=== PATIENT | female | born 1945 | race Caucasian/White ===

== ENCOUNTER → 2017-03-20 | Outpatient (REF) | payer MEDICARE, BC ==
[~2017-03-20] MED LIST: ASPI1TAB PO; ATEN25TA PO; OMEP20CA3 PO; magnesium OR; vitamin D OR
[2017-03-20 14:28] LABS: CONTROL LINE HPYORI INT CTR LINE PRESENT
== END ==
LOC: M LAB REF 13:21
PROVIDERS: ATTEND Nurse Practitioner Family
DX: F45.8 Other somatoform disorders (principal); K21.9 Gastro-esophageal reflux disease without esophagitis

== ENCOUNTER 2018-09-03 12:29 | Day surgery (SDC) | payer MEDICARE, BC ==
[~2018-09-03] VITALS: Ht 152.4 cm; Wt 66.7 kg
[~2018-09-03 12:29] MED LIST changes: +METO1TAB32 PO; +RANI1TAB6 PO; +VITA2000 PO
[2018-09-03] MEDS ORDERED: PROPOFOL 200 MG/20 ML VIAL As Ordered ONE (14:00)
[2018-09-03] MEDS ORDERED: LIDOCAINE 2% INJ 100 MG/5 ML SDV (FOR ANES.) As Ordered ONE (14:01)
[2018-09-03] MEDS ORDERED: fentaNYL 100 MCG/2 ML INJECTION (J3010) As Ordered ONE (15:47)
--- NOTE | 2018-09-03 16:02 | ROOR ---
Patient Name: Viky Epstein Procedure Date: 09/03/2018 3:46 PM Date of : 1945 Age: 73 Room: [facility] Gender: Female Note Status: Finalized Procedure: Upper GI endoscopy Indications: Abnormal cine-esophagram (cervical web), Globus sensation Providers: Reji PALMER MD Referring MD: LOTTIE RUIZ JR, MD Requesting Provider: Medicines: Monitored Anesthesia Care Complications: No immediate complications. Procedure: Pre-Anesthesia Assessment: - The heart rate, respiratory rate, oxygen saturations, blood pressure, adequacy of pulmonary ventilation, and response to care were monitored throughout the procedure. The Endoscope was introduced through the mouth, and advanced to the second part of duodenum. The upper GI endoscopy was accomplished without difficulty. The patient tolerated the procedure well. Findings: The examined esophagus was normal. No endoscopic abnormality was evident in the esophagus to explain the patient's complaint of dysphagia. It was decided, however, to proceed with dilation of the entire esophagus. The scope was withdrawn. Dilation was performed with a Dominguez dilator with no resistance at 54 Fr. A medium-sized hiatal hernia was present. Mild inflammation was found in the gastric antrum. Biopsies were taken with a cold forceps for histology. The exam was otherwise without abnormality. Impression: - Normal esophagus. - No endoscopic esophageal abnormality to explain patient's dysphagia. Esophagus dilated with 54 F dominguez dilator. - Medium sized hiatal hernia. - Mild gastritis. Biopsied. - The examination was otherwise normal. Recommendation: - Observe patient's clinical course. - Continue present medications. - Telephone endoscopist for pathology results in 2 weeks. Reji Palmer MD Reji PALMER MD 09/03/2018 4:02:31 PM This report has been signed electronically. Number of Addenda: 0 Note Initiated On: 09/03/2018 3:46 PM Estimated Blood Loss: Estimated blood loss: none.
[2018-09-03 16:25] VITALS: BP 140/63
== END 2018-09-03 16:31 | disposition home or self-care (01) ==
LOC: M OPP 12:29
PROVIDERS: ATTEND Internal Medicine Gastroenterology
DX: R93.3 Abnormal findings on diagnostic imaging of other parts of digestive tract (principal); R13.10 Dysphagia, unspecified; K44.9 Diaphragmatic hernia without obstruction or gangrene; K29.70 Gastritis, unspecified, without bleeding; F45.9 Somatoform disorder, unspecified; I49.9 Cardiac arrhythmia, unspecified; Z79.82 Long term (current) use of aspirin; Z79.899 Other long term (current) drug therapy
CPT/HCPCS: 43239; 43450; 88305; J3010

== ENCOUNTER → 2020-05-25 | Outpatient (REF) | payer MEDICARE, BC ==
[~2020-05-25] MED LIST changes: -ASPI1TAB PO; +ASPI81TA26 PO; +OMEP1CAP73 PO; -OMEP20CA3 PO; +RANI-397 PO; -RANI1TAB6 PO
== END ==
LOC: M LAB REF 16:12
PROVIDERS: ATTEND Nurse Practitioner Adult Health
DX: N39.0 Urinary tract infection, site not specified (principal)

== ENCOUNTER → 2021-01-19 | Outpatient (CLI) | payer MEDICARE, BC ==
--- NOTE | 2021-01-19 09:37 | DEXAMM ---
INDICATION: M81.0 AGE RELATED OSTEOPOROSIS. COMPARISON: 09/15/2015, 11/12/2013. TECHNIQUE: Bone density was measured using dual-energy x-ray absorptiometry (DEXA). FINDINGS: AP SPINE L1-L4 BMD 1.218 g/cm2 Young Adult T-Score 0.2 Age Matched Z-Score 2.0. LT FEMUR, TOTAL BMD 0.832 g/cm2 Young Adult T-Score -1.4 Age Matched Z-Score 0.5. LT NECK BMD 0.790 g/cm2 Young Adult T-Score -1.8 Age Matched Z-Score 0.2. RT FEMUR, TOTAL BMD 0.827 g/cm2 Young Adult T-Score -1.4 Age Matched Z-Score 0.4. RT NECK BMD 0.774 g/cm2 Young Adult T-Score -1.9 Age Matched Z-Score 0.1. IMPRESSION: There is normal bone density of the spine. There is low bone density of the left hip. There is low bone density of the right hip. The density of the spine has increased 1.8% since the initial exam on 11/12/2013. The density of the spine increased 12.3% since most recent exam on 09/15/2015. The density of the left hip has decreased 20.5% since initial exam on 11/13/2003. The density of the left hip has decreased 7.3% since most recent exam on 09/15/2015. The density of the right hip has decreased 17.7% since the initial exam on 11/13/2003. The density of the right hip has decreased 5.1% since the most recent exam on 09/15/2015. FOLLOW-UP: Recommendation for the next bone density exam: 2 years. <Electronically signed by Liang Ghosh > 01/19/21 0933
== END ==
LOC: M WHC 08:04
PROVIDERS: ATTEND Internal Medicine
DX: M81.0 Age-related osteoporosis without current pathological fracture (principal); M85.851 Other specified disorders of bone density and structure, right thigh; M85.852 Other specified disorders of bone density and structure, left thigh

== ENCOUNTER → 2022-04-03 | Outpatient (CLI) | payer MEDICARE, BC ==
[2022-04-03 16:32] LABS: BASO # 0.1 10^3/uL (0.0-0.2); BASO % 0.6 % (0.0-1.0); EOS # 0.1 10^3/uL (0.0-0.5); EOS % 1.4 % (0.0-3.0); HEMATOCRIT 42.5 % (36.0-47.0); HEMOGLOBIN 13.7 g/dl (12.0-15.5); LYMPH # 1.9 10^3/uL (1.5-5.0); LYMPH % 18.5 % (24.0-44.0); MEAN CORPUSCULAR HEMOGLOBIN 30.9 pg (27.0-33.0); MEAN CORPUSCULAR HGB CONC 32.2 g/dl (32.0-36.5); MEAN CORPUSCULAR VOLUME 95.9 fl (80.0-96.0); MONO # 0.9 10^3/uL (0.0-0.8); MONO % 8.3 % (2.0-8.0); NEUTROPHILS # 7.4 10^3/uL (1.5-8.5); NEUTROPHILS % 70.9 % (36.0-66.0); PLATELET COUNT, AUTOMATED 231 10^3/uL (150-450); RED BLOOD COUNT 4.43 10^6/uL (4.00-5.40); WHITE BLOOD COUNT 10.4 10^3/uL (4.0-10.0)
[2022-04-03 17:04] LABS: ALBUMIN 3.6 GM/DL (3.2-5.2); ALT/SGPT 23 U/L (12-78); BILIRUBIN,TOTAL 0.8 MG/DL (0.2-1.0); BLOOD UREA NITROGEN 18 MG/DL (7-18); CALCIUM LEVEL 9.2 MG/DL (8.8-10.2); CARBON DIOXIDE LEVEL 27 MEQ/L (21-32); CHLORIDE LEVEL 107 MEQ/L (98-107); CREATININE FOR GFR 0.95 MG/DL (0.55-1.30); GLOMERULAR FILTRATION RATE > 60.0 (>39); GLUCOSE, FASTING 99 MG/DL (70-100); POTASSIUM SERUM 4.2 MEQ/L (3.5-5.1); SODIUM LEVEL 141 MEQ/L (136-145); TOTAL PROTEIN 6.7 GM/DL (6.4-8.2)
== END ==
LOC: M WUC 13:33
PROVIDERS: ATTEND Physician Assistant
DX: R10.30 Lower abdominal pain, unspecified (principal); R19.7 Diarrhea, unspecified

== ENCOUNTER 2022-05-14 17:38 | Emergency (ER) | payer MEDICARE, BC ==
[~2022-05-14] VITALS: Ht 162.6 cm; Wt 59.3 kg
[2022-05-14 18:32] LABS: BASO # 0.1 10^3/uL (0.0-0.2); BASO % 0.8 % (0.0-1.0); EOS # 0.1 10^3/uL (0.0-0.5); EOS % 1.3 % (0.0-3.0); HEMATOCRIT 43.3 % (36.0-47.0); HEMOGLOBIN 14.4 g/dl (12.0-15.5); LYMPH # 2.8 10^3/uL (1.5-5.0); LYMPH % 30.6 % (24.0-44.0); MEAN CORPUSCULAR HEMOGLOBIN 30.7 pg (27.0-33.0); MEAN CORPUSCULAR HGB CONC 33.3 g/dl (32.0-36.5); MEAN CORPUSCULAR VOLUME 92.3 fl (80.0-96.0); MONO # 0.9 10^3/uL (0.0-0.8); MONO % 9.8 % (2.0-8.0); NEUTROPHILS # 5.2 10^3/uL (1.5-8.5); NEUTROPHILS % 57.3 % (36.0-66.0); PLATELET COUNT, AUTOMATED 240 10^3/uL (150-450); RED BLOOD COUNT 4.69 10^6/uL (4.00-5.40); WHITE BLOOD COUNT 9.1 10^3/uL (4.0-10.0)
[2022-05-14 19:01] LABS: ALBUMIN 3.6 GM/DL (3.2-5.2); ALT/SGPT 18 U/L (12-78); BILIRUBIN,DIRECT 0.2 MG/DL (0.0-0.2); BILIRUBIN,TOTAL 0.8 MG/DL (0.2-1.0); BLOOD UREA NITROGEN 12 MG/DL (7-18); CALCIUM LEVEL 9.3 MG/DL (8.8-10.2); CARBON DIOXIDE LEVEL 26 MEQ/L (21-32); CHLORIDE LEVEL 107 MEQ/L (98-107); CREATININE FOR GFR 0.82 MG/DL (0.55-1.30); GLOMERULAR FILTRATION RATE > 60.0 (>39); GLUCOSE, FASTING 100 MG/DL (70-100); LIPASE 67 U/L (73-393); POTASSIUM SERUM 4.7 MEQ/L (3.5-5.1); SODIUM LEVEL 138 MEQ/L (136-145); TOTAL PROTEIN 7.1 GM/DL (6.4-8.2)
[2022-05-14] MEDS ORDERED: ISOVUE-370 76% 100ML VIAL As Ordered ONE (21:48)
[2022-05-14] MEDS ORDERED: NS 1,000 ML IV ONE (21:50)
[2022-05-14] MEDS ORDERED: DICYCLOMINE 10 MG CAP PO ONE (21:50)
[2022-05-14 23:01] VITALS: BP 132/83
[2022-05-14] MEDS ORDERED: metroNIDAZOLE (FLAGYL) 500MG TABLET PO ONE (23:05)
[2022-05-14] MEDS ORDERED: CIPROFLOXACIN 500MG TABLET PO ONE (23:05)
[2022-05-14] MEDS ORDERED: traMADol 50 MG TAB PO ONE (23:05)
[2022-05-14] MEDS ORDERED: METR-265 PO (23:09)
[2022-05-14] MEDS ORDERED: TRAM50TA2 PO (23:09)
[2022-05-14] MEDS ORDERED: CIPR-249 PO (23:09)
== END 2022-05-14 23:52 | disposition home or self-care (01) ==
LOC: M ED 17:38
DX: K57.32 Diverticulitis of large intestine without perforation or abscess without bleeding (principal); R19.7 Diarrhea, unspecified; K44.9 Diaphragmatic hernia without obstruction or gangrene; Z79.899 Other long term (current) drug therapy
CPT/HCPCS: 74177; 80048; 80076; 83690; 85025; 96360; 99284; Q9967

== ENCOUNTER → 2022-05-22 | Outpatient (CLI) | payer MEDICARE, BC ==
[~2022-05-22] MED LIST changes: +CIPR-249 PO; +METR-265 PO; +TRAM50TA2 PO
== END ==
LOC: M WHC 07:56
PROVIDERS: ATTEND Internal Medicine
DX: R92.2 Inconclusive mammogram (principal)

== ENCOUNTER → 2022-05-31 | Outpatient (CLI) | payer MEDICARE, BC | LOC: M WHC 10:51 | PROVIDERS: ATTEND Internal Medicine | DX: R92.2 Inconclusive mammogram (principal) | CPT/HCPCS: 77065; G0279 ==

== ENCOUNTER → 2023-06-04 | Outpatient (CLI) | payer BC, MEDICARE | LOC: M WHC 07:27 | PROVIDERS: ATTEND Internal Medicine | DX: Z12.31 Encounter for screening mammogram for malignant neoplasm of breast (principal) ==

== ENCOUNTER → 2023-07-11 | Outpatient (REF) | payer MEDICARE | LOC: M LAB REF 10:06 | PROVIDERS: ATTEND Physician Assistant | DX: R30.0 Dysuria (principal) ==

== ENCOUNTER → 2023-09-04 | Outpatient (CLI) | payer MEDICARE | LOC: M WHC 07:52 | PROVIDERS: ATTEND Internal Medicine | DX: M81.0 Age-related osteoporosis without current pathological fracture (principal); M85.89 Other specified disorders of bone density and structure, multiple sites ==

== ENCOUNTER 2024-04-10 09:05 | Day surgery (SDC) | payer MEDICARE ==
[~2024-04-10] VITALS: Ht 152.4 cm; Wt 57.8 kg
[~2024-04-10 09:05] MED LIST changes: +B-12100010 PO; +FOLI1TAB11 PO; +MAGN250T7 PO; +VITA100093 PO
[2024-04-10] MEDS: NS 1,000 ML IV ONE (10:46)
[2024-04-10] MEDS ORDERED: fentaNYL 100 MCG/2 ML INJECTION As Ordered ONE (11:23)
[2024-04-10] MEDS ORDERED: propofoL 200 MG/20 ML VIAL As Ordered ONE (12:13)
[2024-04-10 12:48] VITALS: BP 130/77; O2SAT 97
== END 2024-04-10 12:57 | disposition home or self-care (01) ==
LOC: M OPP 09:05
PROVIDERS: ATTEND Internal Medicine Gastroenterology
DX: K44.9 Diaphragmatic hernia without obstruction or gangrene (principal); K63.5 Polyp of colon; K59.00 Constipation, unspecified; K57.30 Diverticulosis of large intestine without perforation or abscess without bleeding; K64.8 Other hemorrhoids; R12 Heartburn; Z87.19 Personal history of other diseases of the digestive system; Z83.79 Family history of other diseases of the digestive system; Z79.899 Other long term (current) drug therapy
CPT/HCPCS: 43239; 45385; 88305; J3010

== ENCOUNTER → 2024-05-21 | Outpatient (REF) | payer MEDICARE | LOC: EEVIPCON 16:53 → M LAB REF 16:53 | PROVIDERS: ATTEND Family Medicine | DX: N39.0 Urinary tract infection, site not specified (principal) ==

== ENCOUNTER → 2024-06-06 | Outpatient (CLI) | payer MEDICARE | LOC: M WHC 07:55 | PROVIDERS: ATTEND Internal Medicine | DX: Z12.31 Encounter for screening mammogram for malignant neoplasm of breast (principal); R92.323 Mammographic fibroglandular density, bilateral breasts; R92.8 Other abnormal and inconclusive findings on diagnostic imaging of breast ==

== ENCOUNTER → 2024-06-24 | Outpatient (CLI) | payer MEDICARE | LOC: M WHC 12:27 | PROVIDERS: ATTEND Internal Medicine | DX: R92.8 Other abnormal and inconclusive findings on diagnostic imaging of breast (principal); N63.21 Unspecified lump in the left breast, upper outer quadrant | CPT/HCPCS: 76642; 77065; G0279 ==

== ENCOUNTER → 2025-03-09 | Outpatient (REF) | payer MEDICARE | LOC: M LAB REF 11:53 | PROVIDERS: ATTEND Internal Medicine | DX: R31.9 Hematuria, unspecified (principal) ==

== ENCOUNTER → 2025-06-18 | Outpatient (CLI) | payer MEDICARE | LOC: M WHC 07:57 | PROVIDERS: ATTEND Internal Medicine | DX: R92.8 Other abnormal and inconclusive findings on diagnostic imaging of breast (principal); R92.333 Mammographic heterogeneous density, bilateral breasts | CPT/HCPCS: 77066; G0279 ==